=== PATIENT | male | born 1940 | race Caucasian/White ===

== ENCOUNTER 2024-08-02 16:05 | Inpatient (IN) | payer MEDICARE, SELFPAY ==
[2024-08-02] VITALS (24 sets, daily range): BP systolic 85–135; BP diastolic 45–79; BMI 19.7
--- NOTE | 2024-08-02 09:44 | ED.GENMED ---
History of Present Illness
General
Chief Complaint: Blood Pressure Problem
Source: patient, records, ambulance crew and long-term
Exam Limitations: dementia
Time Seen by Provider: 08/02/24 09:30
Nursing documentation reviewed up to this point in time: agreed with
History of Present Illness
History of Present Illness:
84-year-old male with a past medical history of hypertension, hyperlipidemia, CAD, CHF, AICD, CKD, atrial fibrillation, dementia who presents to the emergency room from long-term (the [facility] at [place]) via EMS for evaluation of low blood
pressure. Patient is a poor historian due to his dementia. While he is awake and alert and answers questions and tries to follow conversation he has very poor short-term recall on could not tell me much about why he is here. According to EMS they
received a call for hypotension; on their arrival he was mildly hypotensive with a blood pressure of 87/50 and he was transported to the ER. No other symptoms noted. He was given 500 cc of IV fluid on the way to the hospital. When I asked the
patient how he is feeling he says 'fine.' He says 'I told them I did not need to go to the hospital.' He denies any headache, neck pain, back pain, chest pain, abdominal pain. Denies any nausea. I spoke to the long-term staff directly for
collateral history: Apparently he just arrived at [facility] yesterday, had been at [facility] previously. snf staff reports that he was very weak and shaky today and they checked his blood pressure and it was low. They
also said his pulse ox was slightly low. He was referred to the ER to be evaluated. This is apparently all new since yesterday.
Review of Systems
Review of Systems
Unable to obtain full review of systems at this time due to: dementia
All Other Systems: Not applicable
Phy Exam
Physical Exam
Physical Exam:
General: Awake, alert, oriented x 2; no acute distress
Head: Normocephalic, atraumatic
Eyes: Conjunctiva normal, pupils equal round and reactive to light bilaterally
Throat: Airway intact, handling secretions
Neck: Trachea midline, supple without meningismus, no JVD
Lungs: Clear to auscultation bilaterally, no wheezing, rales, rhonchi
Heart: Regular rate and rhythm, no murmurs, gallops, or rubs; AICD in place left upper chest
Abd: Soft, non distended, nontender with no palpable masses
Neuro: No gross deficits
Skin: Warm and dry; patient has chronic wound on the right heel approximately 6 cm diameter with overlying black eschar; no surrounding erythema, warmth, drainage, tenderness, fluctuance
Extremities: No edema in extremities, distal extremities are warm and well-perfused
Scores
Heart Failure Risk
Heart Failure Risk Score: Not Applicable
Heart Score for Chest Pain Patients
STEMI patient?: Not applicable
Withdrawal Assessment of Alcohol
Withdrawal Assessment Completed?: Not applicable
Course
Orders/Labs/Results
Orders:
Orders
08/02/24 09:42
Electrocardiogram (*1) Urgent
Reason for Study: Other
Other Reason for Exam: hypotension
EKG- Treatment ONCE
Urinalysis Reflex To Culture Urgent
08/02/24 09:43
0.9% Sodium Chloride 250 ml [Nss] 250 ml IV BOLUS
CR Chest Portable - 1 View Urgent
Comment:
Reason For Exam: hypotension
Reason Study Needs to be Portable: Unable to Transport
08/02/24 09:44
Interrogate Pacemaker- Treatment ONCE
08/02/24 09:55
Basic Metabolic Panel Urgent
Complete Blood Count/With Diff Urgent
Lactate Level [Lactic Acid] Urgent
NT-proBNP Urgent
Troponin I Urgent
Abnormal Lab Results
08/02/24
09:55
WBC 11.0 H 10^3/uL
(4.8-10.8)
RBC 3.37 L 10^6/uL
(4.70-6.10)
Hgb 10.9 L g/dL
(13.0-18.0)
Hct 33.1 L %
(39.0-52.0)
MCV 98.2 H fL
(80.0-94.0)
MCH 32.3 H pg
(27.0-31.0)
MCHC 32.9 L g/dL
(33.0-37.0)
RDW 15.2 H %
(11.5-14.5)
MPV 11.1 H fL
(7.4-10.4)
Abs Immat Gran (auto) 0.1 H 10^3/uL
(0-0.05)
Absolute Neuts (auto) 8.5 H 10^3/uL
(1.4-6.5)
Neutrophils % 77.4 H %
(42.2-75.2)
Lymphocytes % 13.8 L %
(20.5-51.1)
Carbon Dioxide 19 L mmol/L
(22-30)
BUN 48 H mg/dl
(9-20)
Creatinine 2.8 H mg/dL
(0.7-1.3)
Glucose 108 H mg/dl
(70-99)
Lactic Acid 2.4 H mmol/L
(0.7-2.0)
08/02/24 09:55
08/02/24 09:55
Vital Signs
Initial and Last Documented VS:
Initial Vital Signs
Temp Pulse Resp BP Pulse Ox
36.5 C 77 16 95/47 98
08/02/24 09:23 08/02/24 09:23 08/02/24 09:23 08/02/24 09:23 08/02/24 09:23
Last Documented Vital Signs
Temp Pulse Resp BP Pulse Ox
36.5 C 77 16 95/47 98
08/02/24 09:23 08/02/24 09:23 08/02/24 09:23 08/02/24 09:23 08/02/24 09:23
MDM/Problems Addressed
Differential Diagnosis Includes:
Dehydration/hypovolemia; low suspicion that hypotension is cardiogenic with no signs of overt heart failure; he has no fever or tachycardia to suggest sepsis; no tachycardia, tachypnea, hypoxia to suggest pneumothorax or large PE, vital signs not
consistent with tamponade
MDM/Problems Addressed:
84-year-old male presents with mild hypotension from long-term. He says that he feels fine but is a limited historian due to his dementia. He was hypotensive to 87/50 for EMS; he received 500 cc of fluid and blood pressure improved slightly to
95/47. Physical exam as above�clinically he appears mildly hypovolemic on exam. Will check labs including a CBC and a CMP; obtain troponin/EKG, chest x-ray. Interrogate device. Check urinalysis. Provide additional fluids�given his cardiac
history will start with 250 cc and reassess vitals and volume status. Monitor closely reassess after the above.
Initial labs reviewed: CBC shows marginal leukocytosis to 11, CMP shows marginal anemia 10.9. CMP shows elevated creatinine 2.8 with BUN of 48 in the setting of known chronic kidney disease. Lactate was slightly elevated at 2.4. proBNP was
slightly elevated at 3000 troponin negative, chest x-ray no acute disease�he has no signs or symptoms of CHF and in fact appears mildly hypovolemic rather than volume overload. We are awaiting urinalysis and interrogation of his pacemaker/AICD.
His and daughter are now at the bedside�they report that he does have chronic and recurrent issues with dehydration.
Chronic conditions affecting care:
CHF
*Radiology
Radiology exam reviewed: preliminary read by ED provider and radiology read reviewed
*Pulse Oximetry
Patient hypoxic: no
*EKG
Interpreted by ED Provider?: Yes
Heart Rate: 60
Rate: normal
Rhythm: ventricular paced
*Critical Care Note
Total Time (30-74mins, 75-104mins- exclusive of procedures): Not Applicable
Data Reviewed
Source: patient, spouse, family, ambulance crew, long-term and long-term records
Patient Management
Discussion with other providers: snf staff (Discussed directly with long-term staff)
ED Attending Note
-
Portions of this chart may have been created with voice recognition software.� Occasional wrong word or��sound alike� substitutions may have occurred due to the inherent limitations of voice recognition software.
Discharge Plan
Departure
Prescriptions:
No Action
acetaminophen [Tylenol] 325 mg Tablet
650 mg PO Q4HPRN PRN (Reason: mild pain)
lidocaine 4 % Adhesive Patch,Medicated
1 patch TOPICAL DAILYPRN PRN (Reason: right knee)
valacyclovir 1 gram Tablet
1,000 mg PO DAILY
omeprazole 40 mg Capsule,Delayed Release(Dr/Ec)
40 mg PO DAILY
oxycodone-acetaminophen [Percocet] 5-325 mg Tablet
1 tab PO Q6HPRN PRN (Reason: severe pains)
sodium bicarbonate 650 mg Tablet
650 mg PO BID
brimonidine 0.2 % Drops
1 drp RIGHT EYE BID
docusate sodium [Colace] 100 mg Capsule
200 mg PO DAILY
allopurinol 300 mg Tablet
300 mg PO DAILY
mirtazapine 15 mg Tablet
15 mg PO HS
gabapentin 100 mg Capsule
100 mg PO BID
Eliquis 5 mg Tablet
5 mg PO BID
potassium chloride 20 mEq Tablet Extended Release
20 meq PO DAILY
magnesium oxide 400 mg magnesium Tablet
400 mg PO DAILY
Referrals:
Bryant Louis DO [Family Provider] -
Interventions
Interventions:
*Risk Screen - Suicide Last Done: 08/02/24 09:23
*General Assessment Last Done: 08/02/24 09:23
*Neglect/Abuse Screening Last Done: 08/02/24 09:23
Discharge Date and Time
Print Language: CROATIAN
[2024-08-02] MEDS: NSS 250 IV ×2 (09:53→12:45)
[2024-08-02 10:03] LABS: % Basophils 0.7 % (0-2); % Eosinophils 1.8 % (0-6); % Immature Granulocytes 0.5 % (0-0.5); % Lymphocytes 13.8 % (20.5-51.1); % Monocytes 5.8 % (1.7-9.3); % Neutrophils 77.4 % (42.2-75.2); Absolute Basophils 0.1 10^3/uL (0-0.2); Absolute Eosinophils 0.2 10^3/uL (0-0.7); Absolute Immature Granulocytes 0.1 10^3/uL (0-0.05); Absolute Lymphocytes 1.5 10^3/uL (1.2-3.4); Absolute Monocytes 0.6 10^3/uL (0.1-0.6); Absolute Neutrophils 8.5 10^3/uL (1.4-6.5); Hematocrit 33.1 % (39.0-52.0); Hemoglobin 10.9 g/dL (13.0-18.0); Mean Corp Hgb Conc. 32.9 g/dL (33.0-37.0); Mean Corpuscular Hgb 32.3 pg (27.0-31.0); Mean Corpuscular Volume 98.2 fL (80.0-94.0); Mean Platelet Volume 11.1 fL (7.4-10.4); Nucleated Red Blood Cells % 0 % (-); Platelet Count 212 10^3/uL (130-400); Red Blood Cell Count 3.37 10^6/uL (4.70-6.10); Red Cell Dist. Width 15.2 % (11.5-14.5)
[2024-08-02 10:14] LABS: Lactic Acid 2.4 mmol/L (0.7-2.0)
[2024-08-02 10:27] LABS: NT-proBNP 3140 pg/ml; Troponin I 0.021 ng/ml
[2024-08-02 10:37] LABS: Blood Urea Nitrogen 48 mg/dl (9-20); Calcium 9.5 mg/dl (8.4-10.2); Carbon Dioxide 19 mmol/L (22-30); Chloride 105 mmol/L (98-107); Estimated Creatinine Clearance 17 ml/min; Glucose 108 mg/dl (70-99); Sodium 138 mmol/L (135-145); eGFR 21.31
[2024-08-02 11:58] LABS: Urine Albumin 1+ (Neg - Trace); Urine Bilirubin Negative (Negative); Urine Character Slightly Cloudy (Clear); Urine Color Straw; Urine Glucose Negative (Negative); Urine Ketone Negative (Negative); Urine Leukocyte 2+ (Negative); Urine Nitrite Negative (Negative); Urine Occult Blood Trace (Negative); Urine Urobilinogen Negative (Neg - 1+)
[2024-08-02 12:12] LABS: Urine White Cell >100 /HPF (0-5)
[2024-08-02 12:13] LABS: Urine Bacteria Few (Negative); Urine Urothelial Cell 0-2 /LPF (FEW)
[2024-08-02] MEDS: ROCEPHIN 1000 MG IV (12:45)
--- NOTE | 2024-08-02 15:32 | CM ---
Patient seen at bedside with physician and resident. patient in ED. Patient daughter and no longer present in ED/hospital. Patient had been a patient at [facility] since 05/04-08/01 when he was transferred at [facility] request to [facility] 08/01. Patient brought to today. CM called and left for patient nurse at [facility] and requested call back. Per [facility] patient was to have been LTC at [facility] but after using all 100 days patient daughter did not want
to continue to pay privately and requested transfer to [facility]. Patient transferred to [facility] on 08/01/24. Per admissions/social work at [facility] Patient was being treated for wound care and patient was an extensive assist
of 1 transferring from bed to wheelchair and mod assist in all ADL's. Patient is able to feed self and likes coke a cola. CM was able to review POA documentation that indicated that the and daughter were identified as POA, documentation was
signed on 04/23/2024. Per [facility] admissions they would accept patient back if needing SNF but patient would be private pay due to using all medicare days. CM will call to patient daughter with resident and review discharge planning options. Per
[facility] and [facility] patient recently moved to [facility] from [place]. CM will continue to follow for discharge planning needs.
Plan; [facility] pending functional status and medical treatment plan.
--- NOTE | 2024-08-02 16:46 | HPS.HSE ---
Addendum entered and electronically signed by Sena Núñez MD 08/02/24 18:17:
I personally performed a history and physical exam of the patient and discussed management with the resident. I reviewed the resident's note and agree with the documented findings and plan of care HPI/CC.
GENERAL: well developed, well nourished, male in no apparent distress
HEENT: NC/AT
HEART: regular rate and rhythm, +S1, +S2--defibrillator left chest wall noted
LUNGS : clear to auscultation bilaterally
ABDOM: soft, nontender, nondistended, + bowel sounds
EXT: no cyanosis, clubbing, or edema
NEUROLOGIC: apparent dementia
: iniguez in place, herpetic/vesicular rash groin
SKIN: scaly patch appearing like psoriasis left abdominal fold
Hypotension with lactic acidosis--reason for ED evaluation--most likely secondary to hypovolemia as BP responds to IVF--other possible etiologies could be sepsis (infection of bilateral heel wound--POA or UTI but does not meet full criteria for
SIRS)--keep SBP ~ 100--hold on fluids--trend lactates
Acute UTI--Urinalysis positive--Urine culture pending--cont IV rocephin for now
WILL on CKDIII (baseline creat unknown)--Etiology likely prerenal due to hypovolemia with component of postrenal urinary retention (has BPH)--700 cc urine drained after iniguez placed for acute retention--follow creat with hydration
Pressure ulcers of bilateral Heels--present on admission--consult wound care--PT/OT
Genital Herpes--Continue Valacyclovir
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
Paroxysmal atrial fibrillation--rate controlled--Anticoagulation with Eliquis--cont meds as able
Generalized osteoarthritis--Continue to gabapentin, lidocaine patch, Percocet--Bowel regimen with MiraLAX, Colace, docusate as needed
Gout--Continue allopurinol at reduced dosage 200 mg for renal function
Depression/Dementia--Bedtime Mirtazapine
GERD without esophagitis--Continue omeprazole
HFpEF/ICD--Biventricular pacemaker--consideration for ECHO
DVT prophylaxis-Eliquis
CODE STATUS-DNR
PT/OT evals
Original Note:
Family Physician
-
Family Physician: Bryant Louis
Chief Complaint
-
Hypotension
History of Present Illness
This is an 84-year-old male with multiple past medical history as stated below, dementia who presents to ER from [facility]) due to low blood pressure and pulse ox. Limited information gotten from patient at bedside.
Additional information gotten from patient's daughter, ER notes and order summary report from [facility]. Patient was recently transferred from [facility] to [facility] in the past 24 hours. He was noted to be hypotensive, with
low pulse ox. EMS was called, and on arrival his blood pressure was 87/50 with no symptoms noted. He was given 500 cc of IV fluids en route to the hospital with slight improvement in his blood pressure. At bedside, patient denies any acute
complaints. He denies chest pain, denies shortness of breath, denies palpitations. On speaking to the daughter, daughter notes that patient has been very weak these past few days. On presentation to ED, his blood pressure was 95/47, afebrile,
with O2 sats 98% on room air. Evaluation with a chest x-ray showed no acute disease of chest. Urinalysis positive for UTI infection, with WBC 11.0 and lactic acid 2.4.
Medical History
Past Medical History
Past Medical History: Reports Other (Hemarthrosis right knee, atherosclerotic heart disease of [place] coronary artery without angina pectoris, presence of ICD, T2DM with diabetic CKD, essential hypertension, HFpEF, atrial fibrillation, CKD stage
III, hypercholesterolemia, gout, PVD, glaucoma, GERD without esophagitis, cognitive deficit)
Additional Past Medical History:
Generalized osteoarthritis, depression, Genital Herpes Viral infection, pressure ulcer of bilateral Heel
Past Surgical History: Reports Other (ICD implantation)
Social History
Unable to obtain full social history at this time due to: Dementia
Family History
Family History: Not pertinent
Allergies / Home Medications
Allergies reflects when Allergies were last updated in [facility].
Home Medications with original date entered in [facility]
Allergy/Medication List:
Allergies
Allergy/AdvReac Type Severity Reaction Status Date / Time
[id number] Reductase Allergy Unknown Verified 08/02/24 09:23
Inhibitor
Home Medications
acetaminophen 325 mg tablet (Tylenol) 650 mg PO Q4HPRN PRN mild pain 08/02/24
allopurinol 300 mg tablet 300 mg PO DAILY 08/02/24
apixaban 5 mg tablet (Eliquis) 5 mg PO BID 08/02/24
brimonidine 0.2 % eye drops 1 drp RIGHT EYE BID 08/02/24
docusate sodium 100 mg capsule (Colace) 200 mg PO DAILY 08/02/24
gabapentin 100 mg capsule 100 mg PO BID 08/02/24
lidocaine 4 % topical patch 1 patch topical DAILYPRN PRN right knee 08/02/24
magnesium oxide 400 mg PO DAILY 08/02/24
mirtazapine 15 mg tablet 15 mg PO HS 08/02/24
omeprazole 40 mg capsule,delayed release 40 mg PO DAILY 08/02/24
oxycodone-acetaminophen 5 mg-325 mg tablet (Percocet) 1 tab PO Q6HPRN PRN severe pains 08/02/24
potassium chloride 20 mEq tablet,extended release 20 meq PO DAILY 08/02/24
sodium bicarbonate 650 mg tablet 650 mg PO BID 08/02/24
valacyclovir 1 gram tablet 1,000 mg PO DAILY 08/02/24
Review of Systems
-
Unable to obtain full review of systems at this time due to: Dementia
Physical Exam
Vital Signs
Vital Signs
Temp Pulse Resp BP Pulse Ox
97.7 F 61 16 112/67 100
08/02/24 09:23 08/02/24 16:30 08/02/24 16:30 08/02/24 16:30 08/02/24 16:00
Physical Exam
General: No Apparent Distress and Comfortable
Respiratory: Clear; No Wheezes or Rales
Cardiac: S1/S2 and Regular Rhythm
GI: Soft, Non Tender, Non Distended and Normal Bowel Sounds
Genito-urinary: Iniguez
Musculoskeletal: Other (Pressure ulcers B/L HEEL, open wound on right knee.)
Skin: Other (Silvery-white scaly rash on left torso, Herpetic rash in groin, )
Neuro: Awake
Laboratory Results
-
08/02/24 09:55
08/02/24 09:55
Laboratory Results
Lactic Acid 2.4 mmol/L (0.7-2.0) H 08/02/24 09:55
Total Bilirubin Cancelled 08/02/24 09:55
AST Cancelled 08/02/24 09:55
ALT Cancelled 08/02/24 09:55
Alkaline Phosphatase Cancelled 08/02/24 09:55
Troponin I 0.021 ng/ml 08/02/24 09:55
Impression/Plan
-
IMPRESSION/PLAN:
#Acute UTI
-Urinalysis positive
-Urine cultures pending
-Initiated on IV Rocephin, will continue
-Elevated WBC on presentation, trend WBC
# Hypotension most likely secondary to hypovolemia
-Hypovolemic on physical examination
-BP improved with IV fluids
-Due to history of CHF, will hold off on more fluids at this time
-Monitor BP, off fluids
# WILL on CKDIII
-Etiology likely prerenal due to hypovolemia with component of postrenal, 700 cc urine after straight cath in ED.
-Iniguez inserted in ED due to acute retention. Will continue with Iniguez.
-Creatinine 2.8 on presentation, baseline unknown
-Although records with known history of WILL/CKD 3
-Monitor creatinine
# Pressure ulcer of bilateral Heel
-Wound consult
-B/L Heel with wrapped gauze
-PT/OT eval.
#Genital Herpes
-Continue Valacyclovir
#Psoriasis on Left Upper torso underneath Armpit
-Triamcinolone Ointment.
# Paroxysmal atrial fibrillation
-Anticoagulation with Eliquis
# Generalized osteoarthritis
-Continue to gabapentin, lidocaine patch, Percocet
-Bowel regimen with MiraLAX, Colace, docusate as needed
# Gout
-Continue allopurinol at reduced dosage 20 mg
# Depression
# Dementia
-Bedtime Mirtazapine
# GERD without esophagitis
-Continue omeprazole
HFpEF/ICD
Biventricular pacemaker
DVT prophylaxis-Eliquis
CODE STATUS-DNR
[2024-08-02] MEDS: NEURONTIN 100 MG PO (20:15)
[2024-08-02] MEDS: SODIUM BICARBONATE 650 MG PO (20:16)
[2024-08-02] MEDS: ELIQUIS 2.5 MG PO (20:16)
[2024-08-02] MEDS: PROTONIX 40 MG PO (20:17)
[2024-08-02] MEDS: REMERON 15 MG PO (21:49)
[2024-08-02] MEDS: TRIAMCINOLONE 0.1% OINTMENT 1 APPLIC TOPICAL (21:50)
[2024-08-02] MEDS: ALPHAGAN 0.2% EYE DROPS 1 DROP RIGHT EYE (22:23)
[2024-08-03] VITALS (9 sets, daily range): BP systolic 104–147; BP diastolic 50–68; PULSE 61; BMI 19.7
--- NOTE | 2024-08-03 07:33 | W.PN.HOSP.TC ---
Addendum entered and electronically signed by Sena Núñez MD 08/03/24 19:41:
I saw and evaluated the patient independently. I reviewed the resident�s note and agree with findings and plan as documented by Dr. Ybarra.
GENERAL: well developed, well nourished, male in no apparent distress
HEENT: NC/AT
HEART: regular rate and rhythm, +S1, +S2--defibrillator left chest wall noted
LUNGS : clear to auscultation bilaterally
ABDOM: soft, nontender, nondistended, + bowel sounds
EXT: no cyanosis, clubbing, or edema
NEUROLOGIC: apparent dementia
: iniguez in place, herpetic/vesicular rash groin
SKIN: scaly patch appearing like psoriasis left abdominal fold
Hypotension with lactic acidosis--resolved--reason for ED evaluation--most likely secondary to hypovolemia as BP responds to IVF--other possible etiologies could be sepsis (infection of bilateral heel wound--POA or UTI but does not meet full
criteria for SIRS) urine culture positive for enterococcus--cont rocephin for now--stop fluids--lactate now WNL
Acute Enterococcus UTI--Urinalysis positive--cont IV rocephin for now--pt was in SNF snf--await sensitivities and watch for VRE
WILL on CKDIII (baseline creat unknown)--Etiology likely prerenal due to hypovolemia with component of postrenal urinary retention (has BPH)--700 cc urine drained after iniguez placed for acute retention--no change in creat with hydration
Pressure ulcers of bilateral Heels/ scabbed abrasion left knee/nonblanchable red skin on buttocks--all present on admission--apprec wound care wound care--PT/OT
Genital Herpes--Continue Valacyclovir
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
Paroxysmal atrial fibrillation--rate controlled--Anticoagulation with Eliquis--cont meds as able
Generalized osteoarthritis--Continue to gabapentin, lidocaine patch, Percocet--Bowel regimen with MiraLAX, Colace, docusate as needed
Gout--Continue allopurinol at reduced dosage 200 mg for renal function
Depression/Dementia--Bedtime Mirtazapine
GERD without esophagitis--Continue omeprazole
HFpEF/ICD--Biventricular pacemaker--consideration for ECHO
DVT prophylaxis-Eliquis
CODE STATUS-DNR
Original Note:
Today's Communication/Plan
-
.
Assessment / Plan
Assessment / Plan
#Acute UTI
-Urinalysis positive
-Urine cultures pending, preliminary enterococcus
-Initiated on IV Rocephin, will continue
-Elevated WBC on presentation, trend WBC
# Hypotension most likely secondary to hypovolemia
#Lactic acidosis on presentation, Now resolved
-Hypovolemic on physical examination
-BP improved with IV fluids, NOW OFF FLUIDS
-Due to history of CHF, will hold off on more fluids at this time
-Monitor BP, off fluids
-Pending speech eval.
# WILL on CKDIII
-Etiology likely prerenal due to hypovolemia with component of postrenal, 700 cc urine after straight cath in ED.
-Iniguez inserted in ED due to acute retention. Will continue with Iniguez. Voiding trial tomorrow.
-Creatinine 2.8, similar on presentation, baseline unknown
-Although records with known history of WILL/CKD 3
-Monitor creatinine
# Pressure ulcer of bilateral Heel
-Wound consulted. Input B/l unstageable heel ulcers, dry stable down eschar. Pulses audible with doppler.
-B/L Heel with wrapped gauze
-PT/OT eval.
#Genital Herpes
-Continue Valacyclovir
#Psoriasis on Left Upper torso underneath Armpit
-Triamcinolone Ointment.
# Paroxysmal atrial fibrillation- rate controlled
-Anticoagulation with Eliquis. Eliquis dosage reduced to 2.5mg
# Generalized osteoarthritis
-Continue to gabapentin, lidocaine patch, Percocet
-Bowel regimen with MiraLAX, Colace, docusate as needed
# Gout
-Continue allopurinol at reduced dosage 20 mg
# Depression
# Dementia
-Bedtime Mirtazapine
# GERD without esophagitis
-Continue omeprazole
HFpEF/ICD
Biventricular pacemaker
DVT prophylaxis-Eliquis
CODE STATUS-DNR
Anticipated Discharge: > 48 hours
Subjective/Interval History
-
Patient seen and examined at bedside. Drowsy. Denies any acute complaint.
Objective Data
-
Labs:
Laboratory Results
08/03/24
06:00
WBC Pending
Hgb Pending
Hct Pending
Plt Count Pending
Sodium Pending
Potassium Pending
Chloride Pending
Carbon Dioxide Pending
BUN Pending
Creatinine Pending
Glucose Pending
Calcium Pending
Vital Signs:
Vital Signs
Temp Pulse Resp BP Pulse Ox
97.3 F 61 20 120/62 98
08/03/24 03:50 08/03/24 03:50 08/03/24 03:50 08/03/24 03:50 08/03/24 03:50
I&O
08/02/24 08/03/24 08/04/24
06:59 06:59 06:59
Intake Total 0 / 0
Output Total 500 / 500
Balance -500 / -500
Review of Systems
-
All other systems: Reviewed and negative (except as documented)
Physical Exam
-
General: No Apparent Distress
Respiratory: Clear to Auscultation
Cardiac: Regular Rhythm and S1/S2
GI: Soft, Nontender and Nondistended
Genito-urinary: Iniguez
Skin: Other (pressure ulcers bilateral heel. )
[2024-08-03 09:03] LABS: Hematocrit 32.1 % (39.0-52.0); Hemoglobin 10.8 g/dL (13.0-18.0); Mean Corp Hgb Conc. 33.6 g/dL (33.0-37.0); Mean Corpuscular Hgb 33.8 pg (27.0-31.0); Mean Corpuscular Volume 100.3 fL (80.0-94.0); Mean Platelet Volume 11.4 fL (7.4-10.4); Platelet Count 158 10^3/uL (130-400); Red Cell Dist. Width 14.9 % (11.5-14.5); White Blood Cell Count 7.9 10^3/uL (4.8-10.8)
[2024-08-03] MEDS: NEURONTIN 100 MG PO ×2 (09:55→21:30)
[2024-08-03] MEDS: PROTONIX 40 MG PO (09:55)
[2024-08-03] MEDS: SODIUM BICARBONATE 650 MG PO ×2 (09:55→21:30)
[2024-08-03] MEDS: ZYLOPRIM 200 MG PO (09:56)
[2024-08-03] MEDS: TRIAMCINOLONE 0.1% OINTMENT 1 APPLIC TOPICAL ×3 (09:57→22:16)
[2024-08-03] MEDS: ELIQUIS 2.5 MG PO ×2 (09:58→21:30)
[2024-08-03] MEDS: COLACE 200 MG PO (09:58)
[2024-08-03] MEDS: MAG-TAB SR 84 MG PO (09:58)
[2024-08-03] MEDS: VALTREX 1000 MG PO (09:59)
[2024-08-03] MEDS: ALPHAGAN 0.2% EYE DROPS 1 DROP RIGHT EYE ×2 (10:00→21:31)
[2024-08-03 10:07] LABS: Blood Urea Nitrogen 44 mg/dl (9-20); Calcium 9.5 mg/dl (8.4-10.2); Carbon Dioxide 21 mmol/L (22-30); Chloride 105 mmol/L (98-107); Estimated Creatinine Clearance 17 ml/min; Glucose 74 mg/dl (70-99); Potassium 5.4 mmol/L (3.5-5.1); Sodium 138 mmol/L (135-145); eGFR 21.31
--- NOTE | 2024-08-03 10:25 | WOUNDNOTE ---
L FLANK AND THIGH
--- NOTE | 2024-08-03 10:30 | WOUNDNOTE ---
WON RN note: Patient admitted with hypotension and acute UTI.
See H&P for complete history. From [facility] [place].
PMH: Dementia, A Fib, CHF,CAD,HTN, PVD, RF,gout DM, heel PI's and depression.
Wound Location and type/assessment: Patient admitted with: B/L unstageable heel ulcers, dry stable brown eschar. Slight separation from 12-3 O'clock outer edges but still dry, no drainage. L knee with scabbed abrasion. Very dry skin on legs and
feet, few dry scabs on toes. + pulses Audible with Doppler, non palpable. Buttocks with non blanchable red skin and what appears to be a fungal type rash. L flank and thighs with Tinea, steroid cream on order. Nurse Ondina assisted with assessment
and wound care, patient can assist with turning.
Appetite: Fair.
Pressure redistribution devices in place: Air overlay added to Accumax. Called [employer] for TruVue lite boots.
Plan: To heels applied Betadine swab to Eschar then adaptic, abd pad and pool. Offloading heel boots to be applied by nurse Nj. Will order Nizoral cream added to the Triamcinolone cream already on order, for buttocks, L flank and other yeasty
appearing pink skin. A&D ointment applied to legs and feet, will order mineral oil. residential door installer Amada Dukes made aware of the above and to consider vascular consult for heel wounds if deems appropriate. Local wound care approved and
resident will notify hospitalist of the above.
Updated care plan, nurse Nj and will follow as needed.
Note to case management of equipment requested for discharge: None.
Recommend follow up at wound care center upon discharge.
[2024-08-03] MEDS: STERILE WATER FOR INJECTION 10 ML IV (11:27)
[2024-08-03] MEDS: ROCEPHIN 1000 MG IV (11:27)
--- NOTE | 2024-08-03 13:29 | CM ---
CM spoke with [facility] nursing Jackie; [phone]. Per Jackie patient was borderline for acceptance when he arrived on 08/01 to their facility. Nursing to call patient daughter to review next steps. Therapy recommendation is to continue in LTC
however, patient is in personal care/memory care at this time. CM sent tt for clarification of recommendations from therapy. CM will continue to follow for discharge planning needs.
Plan; SNF vs personal care at [facility].
--- NOTE | 2024-08-03 14:49 | PTOTSP ---
Dysphagia Evaluation
Patient presents with signs concerning for pharyngeal dysphagia and aspiration as evidenced by consistent coughing with thin liquids. Patient with risk factors for dysphagia (cognitive impairment, GERD, heart failure; acute illness with UTI and
WILL). Evaluation of consistencies beyond thin/puree limited by patient refusal.
Patient's daughter/POA consented to video swallow study to further assess swallowing and elected to continue an oral diet until then understanding risks/complications of aspiration. Current CXR 08/02/2024 without signs of PNA.
Recommend:
1. Defer to MD for diet
2. Medications in puree
3. Strategies: upright to 90 degrees, small single sips/bites, slow rate, breaks if coughing, D/C oral diet if decline in respiratory status noted
4. Oral care 3x daily
5. Video swallow study
--- NOTE | 2024-08-03 14:54 | W.PN.UPDATE ---
Update Note
Progress Note Update
contacted Patient's daughter Varsha to update her on plan for the day and progress on her dad's health from yesterday. Daughter consented to a video swallow study. Answered all questions she had.
[2024-08-03] MEDS: FLOMAX 0.4 MG PO (16:50)
[2024-08-03] MEDS: NIZORAL 2% CREAM 1 APPLIC TOPICAL (21:29)
[2024-08-03] MEDS: REMERON 15 MG PO (21:30)
[2024-08-04 03:28] VITALS: BP 120/58
--- NOTE | 2024-08-04 03:51 | PTCARENOTE ---
iniguez removed at 00:15 per orders, pt due to void by 06:15. pt incontinent and saturated with urine at 03:30. Pt refusing to wear the fiber filled boots any longer, stating he 'doesn't have to do anything he doesn't want to do' despite education on
importance of boots. Feet propped up on pillow. plan of care ongoing
[2024-08-04 04:32] VITALS: BMI 20.2
--- NOTE | 2024-08-04 07:21 | W.PN.HOSP.TC ---
Addendum entered and electronically signed by Sena Núñez MD 08/04/24 19:12:
I saw and evaluated the patient independently. I reviewed the resident�s note and agree with findings and plan as documented by Dr. Ybarra.
GENERAL: well developed, well nourished, male in no apparent distress
HEENT: NC/AT
HEART: regular rate and rhythm, +S1, +S2--defibrillator left chest wall noted
LUNGS : clear to auscultation bilaterally
ABDOM: soft, nontender, nondistended, + bowel sounds
EXT: no cyanosis, clubbing, or edema
NEUROLOGIC: apparent dementia
: condom cath in place, herpetic/vesicular rash groin
SKIN: scaly patch appearing like psoriasis left abdominal fold
Patient failed video swallow and has aspiration of all consistencies of solids and liquids. Had long conversation (approximately 45 minutes to an hour) with patient's 2 daughters and along with case management and Dr. Ybarra. Family
clearly states that the patient likes to eat and does not care for the food at [facility] nor at critical access hospital. He would not want a feeding tube in that situation. They are in agreement with keeping him comfortable and discharging back to critical access hospital on
hospice tomorrow morning.
Hypotension with lactic acidosis--resolved--reason for ED evaluation--most likely secondary to hypovolemia as BP responded to IVF
Acute Enterococcus UTI--Urinalysis positive--change IV rocephin to doxycycline
WILL on CKDIII (baseline creat 1.2)--Etiology likely prerenal due to hypovolemia with component of postrenal urinary retention (has BPH)--700 cc urine drained after iniguez placed for acute retention
Pressure ulcers of bilateral Heels/ scabbed abrasion left knee/nonblanchable red skin on buttocks--all present on admission--apprec wound care wound care--PT/OT--apprec vascular input--no further workup desired
Genital Herpes--Continue Valacyclovir
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
Paroxysmal atrial fibrillation--rate controlled--Anticoagulation with Eliquis--cont meds as able
Generalized osteoarthritis--Continue to gabapentin, lidocaine patch, Percocet--Bowel regimen with MiraLAX, Colace, docusate as needed
Gout--Continue allopurinol at reduced dosage 200 mg for renal function
Depression/Dementia--Bedtime Mirtazapine
GERD without esophagitis--Continue omeprazole
HFpEF/ICD--Biventricular pacemaker--consideration for ECHO
DVT prophylaxis-Eliquis
CODE STATUS-DNR
Original Note:
Today's Communication/Plan
-
.
Assessment / Plan
Assessment / Plan
Assessment / Plan
#Acute UTI
-Urinalysis positive
-Urine cultures positive for enterococcus spp
-Initiated on IV Rocephin, will continue
# Hypotension most likely secondary to hypovolemia
#Lactic acidosis on presentation, Now resolved
-Hypovolemic on physical examination
-BP improved with IV fluids
-VIDEOFLUOROSCOPIC SWALLOWING EXAMINATION 08/04/2024.-Airway aspiration noted with all consistencies
# WILL on CKDIII
-Etiology likely prerenal due to hypovolemia with component of postrenal, 700 cc urine after straight cath in ED.
-s/p iniguez
-Creatinine 2.8>>2.4, per daughter, Cre level in April 25.2.
-Although records with known history of WILL/CKD 3
# Pressure ulcer of bilateral Heel
-Wound consulted. Input B/l unstageable heel ulcers, dry stable down eschar. Pulses audible with doppler.
-B/L Heel with wrapped gauze
-Vascular input appreciated
-Extremity arterial study 08/04/2024 Diffuse arterial calcification is identified throughout the bilateral lower extremities.
#Genital Herpes
-Continue Valacyclovir
#Psoriasis on Left Upper torso underneath Armpit
-Triamcinolone Ointment.
# Paroxysmal atrial fibrillation- rate controlled
-Anticoagulation with Eliquis. Eliquis dosage reduced to 2.5mg
# Generalized osteoarthritis
-Continue to gabapentin, lidocaine patch, Percocet
-Bowel regimen with MiraLAX, Colace, docusate as needed
# Gout
-Continue allopurinol at reduced dosage 20 mg
# Depression
# Dementia
-Bedtime Mirtazapine
# GERD without esophagitis
-Continue omeprazole
HFpEF/ICD
Biventricular pacemaker
DVT prophylaxis-Eliquis
CODE STATUS-DNR
After lengthy discussion with family regarding goals of care, family agreeable for comfort care. Plan [facility] return to [facility].
Anticipated Discharge: Within 24 hours
Objective Data
-
Labs:
Laboratory Results
08/04/24
07:01
WBC Pending
Hgb Pending
Hct Pending
Plt Count Pending
Sodium Pending
Potassium Pending
Chloride Pending
Carbon Dioxide Pending
BUN Pending
Creatinine Pending
Glucose Pending
Calcium Pending
Vital Signs:
Vital Signs
Temp Pulse Resp BP Pulse Ox
98.0 F 64 18 120/58 95
08/04/24 03:28 08/04/24 03:28 08/04/24 03:28 08/04/24 03:28 08/04/24 03:28
I&O
08/03/24 08/04/24 08/05/24
06:59 06:59 06:59
Intake Total 0 / 0
Output Total 500 / 500 800 / 800
Balance -500 / -500 -800 / -800
Physical Exam
-
General: No Apparent Distress
Respiratory: Clear to Auscultation
Cardiac: S1/S2 and Other (Defibrillator left chest wall noted)
GI: Soft, Nontender and Nondistended
Musculoskeletal: Other (pressure ulcers bilateral heel)
[2024-08-04 07:39] LABS: Hematocrit 32.5 % (39.0-52.0); Hemoglobin 11.2 g/dL (13.0-18.0); Mean Corp Hgb Conc. 34.5 g/dL (33.0-37.0); Mean Corpuscular Hgb 34.3 pg (27.0-31.0); Mean Corpuscular Volume 99.4 fL (80.0-94.0); Mean Platelet Volume 11.5 fL (7.4-10.4); Platelet Count 149 10^3/uL (130-400); Red Blood Cell Count 3.27 10^6/uL (4.70-6.10); Red Cell Dist. Width 14.8 % (11.5-14.5); White Blood Cell Count 9.5 10^3/uL (4.8-10.8)
[2024-08-04 07:40] VITALS: BP 135/65
[2024-08-04 07:49] VITALS: BP 112/56
[2024-08-04] MEDS: SODIUM BICARBONATE 650 MG PO ×2 (08:00→21:01)
[2024-08-04] MEDS: MAG-TAB SR 84 MG PO (08:00)
[2024-08-04] MEDS: COLACE 200 MG PO (08:00)
[2024-08-04] MEDS: ZYLOPRIM 200 MG PO (08:00)
[2024-08-04] MEDS: NEURONTIN 100 MG PO ×2 (08:00→21:01)
[2024-08-04] MEDS: NIZORAL 2% CREAM 1 APPLIC TOPICAL ×2 (08:00→21:02)
[2024-08-04] MEDS: FLOMAX 0.4 MG PO (08:00)
[2024-08-04] MEDS: ELIQUIS 2.5 MG PO ×2 (08:00→21:01)
[2024-08-04] MEDS: PROTONIX 40 MG PO (08:00)
[2024-08-04] MEDS: ALPHAGAN 0.2% EYE DROPS 1 DROP RIGHT EYE ×2 (08:00→21:02)
[2024-08-04] MEDS: TRIAMCINOLONE 0.1% OINTMENT 1 APPLIC TOPICAL ×3 (08:00→21:02)
[2024-08-04 08:06] LABS: Blood Urea Nitrogen 39 mg/dl (9-20); Calcium 9.7 mg/dl (8.4-10.2); Carbon Dioxide 22 mmol/L (22-30); Chloride 105 mmol/L (98-107); Estimated Creatinine Clearance 20 ml/min; Glucose 91 mg/dl (70-99); Potassium 5.1 mmol/L (3.5-5.1); Sodium 138 mmol/L (135-145); eGFR 25.63
--- NOTE | 2024-08-04 09:00 | PTOTSP ---
Speech Language Pathology
VIDEOFLUOROSCOPIC SWALLOWING EXAMINATION (VSE) completed. Overall, pt with mild oral and severe pharyngeal dysphagia. Significant pharyngeal residue noted with penetration or aspiration of all. Aspiration was silent in nature. Pt participated in
study, but was somewhat agitated. When results discussed, pt stated 'no.'
Recommend:
(1) NPO
(2) Goals of care discussion
(3) Non-oral meds
(4) Allow ice chips post oral care with supervision per Aspiration Risk Hydration Protocol (ARHP)
(5) SUPERVISOR W[employer] POUR to continue to follow
--- NOTE | 2024-08-04 11:04 | CON.VAS ---
Addendum entered and electronically signed by Jeffrey Koroma MD 08/04/24 12:22:
Seen and examined with GONZALES Juarez. Agree with findings as noted below. 84-year-old male with extensive medical history as noted below. He has some dementia as well. He is nonambulatory. Has developed bilateral likely pressure related lateral heel
ulcers/gangrene (dry gangrene or eschar). Asked to evaluate in terms of perfusion concerns. 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 He denies any history of lower extremity
interventions. He has had prior coronary stents but nothing in the lower extremities. He relates to me a significant smoking history but quit 40+ years ago. But he notes that he smoked up to 5 packs a day. On exam he is awake and alert. His
breathing is unlabored. Abdomen is soft, nondistended, nontender. Lower extremity on the right side with 2+ femoral and popliteal pulses, nonpalpable distally. On the left side I difficulty palpating a femoral (1+ at best), nonpalpable distally
as well.
Note when I examined him the way he is sitting appears to be the way he sits all the time with both feet externally rotated and therefore constant pressure on his lateral heels.
Noninvasive studies reviewed. Consistent with exam findings. No significant stenosis from femoral to popliteal arteries on the right side. Multiphasic waveforms. Monophasic distal waveforms suggestive of infrapopliteal disease. On the left side
monophasic waveforms throughout suggestive of inflow disease (also consistent with nonpalpable femoral pulse).
Plan/ Likely pressure related heel lateral gangrene/eschar. No signs of overt infections. While these are primarily pressure related, there may be a component of arterial insufficiency in terms of wound healing. Given nonpalpable left femoral
pulse and concern for inflow on that side, would favor CT angiogram imaging with runoff. Before any intervention is even discussed. However, he has renal insufficiency and therefore if this is considered, would recommend nephrology evaluation
first. In addition, the patient's positioning and lack of walking is going to lend itself to nonhealing even with ideal perfusion from an arterial perspective. In this setting, with heel ulcers as such, he actually may be best served with primary
lower extremity amputations as it would not change his quality of life, give him the best chance of wound healing and prevention of infection/sepsis. However this is a major undertaking especially in someone 84 years old. Consideration for goals
of care should be entertained. Per hospitalist, they are having discussion with the family. We will await further discussion and decision making.
Original Note:
Consultation
Consultation Request
Date/Time Consultation Performed: 08/04/24 1045
Requesting Provider: Hospitalist
Performing Provider: Ebony Juarez, GONZALES-C for Jeffrey Koroma MD
Reason for Consultation: Bilateral lower extremity heel wounds
Medical History
-
Chief Complaint: Hypotension
History of Present Illness:
This is a 84-year-old male significant past medical history for atrial fibrillation, CAD, heart failure, GERD, hypertension, hypercholesterolemia, diabetes, chronic kidney disease, gout, osteoarthritis, and cognitive deficits who reports to
[facility] from shelter on 05/2024 with reports of hypotension and low oxygenation reading. Patient is a poor historian and cannot contribute to HPI, he does note reports of pain in bilateral lower extremity heels but otherwise does not
wish to discuss any other concerns or symptoms. HPI is contributed by chart review. Vascular surgery has been consulted as he there is concerns for peripheral arterial disease with abnormal arterial ultrasound with CLARISSA/TBI, and patient has chronic
bilateral lower extremity heel wounds. Patient does state that he does not walk but cannot further delineate or describe ambulatory status. He denies seeing a vascular surgeon in the past or having vascular interventions done in the past.
Currently, offers no complaints other than pain at bilateral lower extremity heels with manipulation.
Past Medical History
Past Medical History: Arrhythmias (Atrial fibrillation), CAD, CHF (HFpEF), GERD, HTN, Hypercholesterolemia, NIDDM and Other (Hemarthrosis right knee, CKD stage III, gout, PVD, glaucoma, cognitive deficit, generalized osteoarthritis, depression,
Genital Herpes Viral infection, pressure ulcer of bilateral Heel)
Past Surgical History: Cardiac (ICD, cardiac catheterization with PCI)
Social History
Tobacco: Former Smoker (Quit 40 years ago but endorses heavy smoking history prior to this with roughly 5 packs/day. However, unclear if this is reliable information)
Living: Long Term
Allergies / Home Medications
Allergy/AdvReac Type Severity Reaction Status Date / Time
[id number]-[id number] Reductase Allergy Unknown Verified 08/02/24 09:23
Inhibitor
�Medication �Instructions �Recorded �Confirmed �Type
acetaminophen 325 mg tablet 650 mg PO Q4HPRN PRN mild pain 08/02/24 08/02/24 History
(Tylenol)
allopurinol 300 mg tablet 300 mg PO DAILY Gout 08/02/24 08/02/24 History
apixaban 5 mg tablet (Eliquis) 5 mg PO BID Blood Clot 08/02/24 08/02/24 History
Prevention/Tx
brimonidine 0.2 % eye drops 1 drp RIGHT EYE BID Eye Condition 08/02/24 08/02/24 History
docusate sodium 100 mg capsule 200 mg PO DAILY Constipation 08/02/24 08/02/24 History
(Colace)
gabapentin 100 mg capsule 100 mg PO BID Neurological 08/02/24 08/02/24 History
Condition
lidocaine 4 % topical patch 1 patch topical DAILYPRN PRN right 08/02/24 08/02/24 History
knee
magnesium oxide 400 mg PO DAILY Constipation 08/02/24 08/02/24 History
mirtazapine 15 mg tablet 15 mg PO HS Sleep 08/02/24 08/02/24 History
omeprazole 40 mg capsule,delayed 40 mg PO DAILY Gastrointestinal 08/02/24 08/02/24 History
release Issue
oxycodone-acetaminophen 5 mg-325 1 tab PO Q6HPRN PRN severe pains 08/02/24 08/02/24 History
mg tablet (Percocet)
potassium chloride 20 mEq 20 meq PO DAILY Supplement 08/02/24 08/02/24 History
tablet,extended release
sodium bicarbonate 650 mg tablet 650 mg PO BID Supplement 08/02/24 08/02/24 History
valacyclovir 1 gram tablet 1,000 mg PO DAILY Infection 08/02/24 08/02/24 History
Review of Systems
-
Unable to obtain full review of systems at this time due to: Dementia
Physical Exam
Vital Signs
Temp Pulse Resp BP Pulse Ox
97.8 F 60 18 112/56 100
08/04/24 07:49 08/04/24 07:49 08/04/24 07:49 08/04/24 07:49 08/04/24 07:49
Lab Results
08/04/24 07:01
08/04/24 07:01
Troponin I 0.021 ng/ml 08/02/24 09:55
Mdc-T-Pqavtiaqeug Pept 3140 pg/ml 08/02/24 09:55
Physical Exam
General: No Apparent Distress
HEENT: Normocephalic, Anicteric and Atraumatic
Respiratory: Non Labored Respirations
Cardiac: Negative JVD
GI: Soft, Non Tender and Non Distended
Musculoskeletal: No Edema
Skin: Other (Bilateral heel with eschar, please refer to wound care notes for pictures and descriptions of wounds as patient was unwilling to have us change dressings)
Neuro: Awake and Oriented (to self)
Pulses: Left Femoral: +1 and Right Femoral: +2 (Bilateral DP/PT pulses nonpalpable)
Assessment / Plan
-
Assessment: 84-year-old male with peripheral arterial disease and chronic bilateral lower extremity heel wounds/pressure ulcers
Plan:
Reviewed noninvasive arterial ultrasound with CLARISSA/TBI suspect inflow disease at left lower extremity given monophasic waveforms, would recommend CTA aorta with bilateral lower extremity runoff to fully assess extent of inflow disease and PAD prior
to providing vascular surgical recommendations. However, he has chronic kidney disease so would recommend nephrology consultation prior to administering IV contrast dye. I personally reviewed this plan with attending Dr. Núñez who informed our
team that there will be a goal of care discussion with patient's family happening today. Thus, we will wait until after this discussion to enact recommendations if that is the family's wishes. Of note, patient is refusing offloading boots and is
wheelchair/bed-bound; thus healing these wounds will be extremely challenging if he continues to place constant pressure on his heels even with revascularization options.
HPI, physical exam, and plan reviewed with attending Dr. Jeffrey Koroma who agrees with plan. I performed this shared service with the attending. I evaluated the patient [id number] and have entered clinical documentation as shown in the encounter note.
I performed the following component(s):�history and physical exam. Note that medical decision making is not final until attested by vascular attending.
[2024-08-04] MEDS: NSS 1000 IV ×2 (11:10→22:54)
[2024-08-04 11:12] VITALS: BP 124/65
[2024-08-04] MEDS: VALTREX 1000 MG PO (11:58)
[2024-08-04] MEDS: HYDROPHOR 1 APPLIC TOPICAL (12:03)
[2024-08-04] MEDS: STERILE WATER FOR INJECTION 10 ML IV (12:35)
[2024-08-04] MEDS: ROCEPHIN 1000 MG IV (12:35)
--- NOTE | 2024-08-04 13:37 | CM ---
Addendum entered by Yolis Leong 08/04/24 16:25:
please fax to [facility] clinical documentation; [phone]. CM e-mailed to patient daughter [email or web address].
Addendum entered by Yolis Leong 08/04/24 16:21:
[facility] fax # [phone]
Addendum entered by Yolis Leong 08/04/24 16:15:
CM spoke with patient daughter, all hospice paperwork is signed and DME for delivery to [facility]. Plan is for discharge tomorrow, asking for transportation at [facility] tomorrow. Transportation paperwork completed and liaison aware. Out of
hospital DNR completed and on chart. Patient will start with [facility] tomorrow when he arrives at [facility]. Please call report to [phone]. CM will continue to follow for discharge planning needs.
Plan; return to [facility] with [facility].
Addendum entered by Yolis Leong 08/04/24 13:56:
referrals sent to admissions at [facility] in [place] and [facility] via all scripts.
Original Note:
Family meeting held with and 2 daughters. Physician and resident present as well as CM. Plan for return to [facility]. CM will make referrals and set up return pending physician assessment. CM will continue to follow for
discharge planning needs.
Plan; [facility]
--- NOTE | 2024-08-04 13:48 | W.CAR.ICD ---
ICD Inactivation Request
-
Cartography Teacher Notified: [employer]
The above vendor has been contacted to inactivate the patient's Implantable Cardioverter Defibrillator.
[2024-08-04 14:34] VITALS: BP 109/61
--- NOTE | 2024-08-04 14:45 | PTCARENOTE ---
Patient's family had meeting today with medical team. Plan is to discharge tomorrow to hospice care. Patient aspirating on all consistencies but diet order to feed for comfort. Patient's temperature is currently 94.4. MD notified. States no
interventions besides use of blankets.
--- NOTE | 2024-08-04 15:05 | W.ICD.INACTI ---
ICD Device Inactivated
-
The patient's ICD device has been inactivated by the vendor.
--- NOTE | 2024-08-04 19:32 | PTCARENOTE ---
Patient states that his Rolex watch is missing. Confirmed that daughter has his watch at home. Patient aware that daughter has watch.
--- NOTE | 2024-08-04 19:33 | PTCARENOTE ---
Pacer/ICD turned off by cardiology team as per family's wishes. Tele removed.
[2024-08-04] MEDS: REMERON 15 MG PO (21:01)
[2024-08-04 23:40] VITALS: BP 145/69
[2024-08-05 06:00] VITALS: BMI 20.7
[2024-08-05 07:00] VITALS: BP 135/62
--- NOTE | 2024-08-05 07:18 | W.PN.HOSP.TC ---
Addendum entered and electronically signed by Sena Núñez MD 08/05/24 19:04:
I saw and evaluated the patient independently. I reviewed the resident�s note and agree with findings and plan as documented by Dr. Ybarra.
GENERAL: well developed, well nourished, male in no apparent distress
HEENT: NC/AT
HEART: regular rate and rhythm, +S1, +S2--defibrillator left chest wall noted
LUNGS : clear to auscultation bilaterally
ABDOM: soft, nontender, nondistended, + bowel sounds
EXT: no cyanosis, clubbing, or edema
NEUROLOGIC: apparent dementia
[facility]
Hypotension with lactic acidosis--resolved--reason for ED evaluation--most likely secondary to hypovolemia as BP responded to IVF
Acute Enterococcus UTI--Urinalysis positive--change IV rocephin to doxycycline to finish course
WILL on CKDIII (baseline creat 1.2)--Etiology likely prerenal due to hypovolemia with component of postrenal urinary retention (has BPH)--700 cc urine drained after iniguez placed for acute retention
Pressure ulcers of bilateral Heels/ scabbed abrasion left knee/nonblanchable red skin on buttocks--all present on admission--apprec wound care wound care--PT/OT--apprec vascular input--no further workup desired
Genital Herpes--Continue Valacyclovir
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
Paroxysmal atrial fibrillation--rate controlled--Anticoagulation with Eliquis--cont meds as able
Generalized osteoarthritis--Continue to gabapentin, lidocaine patch, Percocet--Bowel regimen with MiraLAX, Colace, docusate as needed
Gout--Continue allopurinol at reduced dosage 200 mg for renal function
Depression/Dementia--Bedtime Mirtazapine
GERD without esophagitis--Continue omeprazole
HFpEF/ICD--Biventricular pacemaker--consideration for ECHO
DVT prophylaxis-Eliquis
CODE STATUS-DNR
Original Note:
Today's Communication/Plan
-
Discharge today.
Assessment / Plan
Assessment / Plan
Assessment / Plan
#Acute UTI
-Urinalysis positive
-Urine cultures positive for enterococcus spp
-Initiated on IV Rocephin, will transition to amoxicillin 500mg BID x4days to complete 7 day course.
# Hypotension most likely secondary to hypovolemia
#Lactic acidosis on presentation, Now resolved
-Hypovolemic on physical examination
-BP improved with IV fluids
-VIDEOFLUOROSCOPIC SWALLOWING EXAMINATION 08/04/2024.-Airway aspiration noted with all consistencies
# WILL on CKDIII
-Etiology likely prerenal due to hypovolemia with component of postrenal, 700 cc urine after straight cath in ED.
-s/p iniguez
-Creatinine 2.8>>2.4, per daughter, Cre level in April 25.2.
-Although records with known history of WILL/CKD 3
# Pressure ulcer of bilateral Heel
-Wound consulted. Input B/l unstageable heel ulcers, dry stable down eschar. Pulses audible with doppler.
-B/L Heel with wrapped gauze
-Vascular input appreciated
-Extremity arterial study 08/04/2024 Diffuse arterial calcification is identified throughout the bilateral lower extremities.
#Genital Herpes
-Continue Valacyclovir
#Psoriasis on Left Upper torso underneath Armpit
-Triamcinolone Ointment.
# Paroxysmal atrial fibrillation- rate controlled
-Anticoagulation with Eliquis. Eliquis dosage reduced to 2.5mg
# Generalized osteoarthritis
-Continue to gabapentin, lidocaine patch, Percocet
-Bowel regimen with MiraLAX, Colace, docusate as needed
# Gout
-Continue allopurinol at reduced dosage 20 mg
# Depression
# Dementia
-Bedtime Mirtazapine
# GERD without esophagitis
-Continue omeprazole
HFpEF/ICD
Biventricular pacemaker
Defibrillator turned off by cardiology.
DVT prophylaxis-Eliquis
CODE STATUS-DNR
After lengthy discussion with family regarding goals of care, family agreeable for comfort care. Plan for return to [facility].
Anticipated Discharge: Today
Subjective/Interval History
-
Patient seen at bedside. No overnight events. ICD turned off.
Objective Data
-
Vital Signs:
Vital Signs
Temp Pulse Resp BP Pulse Ox
97.9 F 70 18 145/69 96
08/04/24 23:40 08/04/24 23:40 08/04/24 23:40 08/04/24 23:40 08/04/24 23:40
I&O
08/04/24 08/05/24 08/06/24
06:59 06:59 06:59
Intake Total 480 / 480
Output Total 800 / 800 600 / 600
Balance -800 / -800 -120 / -120
Review of Systems
-
All other systems: Reviewed and negative (except as documented. )
Physical Exam
-
Cardiac: Regular Rhythm and S1/S2
GI: Soft and Nondistended
Musculoskeletal: No Edema
Psych: Apparent Dementia
[2024-08-05] MEDS: PROTONIX 40 MG PO (09:02)
[2024-08-05] MEDS: FLOMAX 0.4 MG PO (09:03)
[2024-08-05] MEDS: ELIQUIS 2.5 MG PO (09:03)
[2024-08-05] MEDS: NEURONTIN 100 MG PO (09:03)
[2024-08-05] MEDS: ZYLOPRIM 200 MG PO (09:03)
[2024-08-05] MEDS: MAG-TAB SR 84 MG PO (09:03)
[2024-08-05] MEDS: SODIUM BICARBONATE 650 MG PO (09:03)
[2024-08-05] MEDS: COLACE PO ×2 (09:03→09:14)
[2024-08-05] MEDS: VALTREX 1000 MG PO (09:03)
[2024-08-05] MEDS: ALPHAGAN 0.2% EYE DROPS 1 DROP RIGHT EYE (09:04)
[2024-08-05] MEDS: TRIAMCINOLONE 0.1% OINTMENT 1 APPLIC TOPICAL (09:04)
[2024-08-05] MEDS: NIZORAL 2% CREAM 1 APPLIC TOPICAL (09:04)
[2024-08-05] MEDS: NSS 1000 IV (09:06)
[2024-08-05] MEDS: HYDROPHOR 1 APPLIC TOPICAL (09:08)
--- NOTE | 2024-08-05 09:46 | CM ---
Pt for dc to [facility] with [facility].
Spoke with [facility] DME to be delivered today to [facility] by 12pm.
Ambulance set up .
DNROOH form signed by .
Spoke with Natasha at [facility] they are aware with dc plan above.
Spoke with Varsha segal she agree with dc plan.
[facility] fax [phone].
[facility] fax # [phone]
PLAN Return to [facility]
--- NOTE | 2024-08-05 17:07 | W.DCSUMMARY ---
Addendum entered and electronically signed by Sena Núñez MD 08/05/24 19:06:
Read, reviewed, and agree. See same day progress note for additional details. Time spent coordinating care, DC planning, review of DC plan of care with resident, transition of care, review of records in EMR, med rec, consults, notes, d/w
consultants, nursing, family, and CM less than 30 minutes
Original Note:
Discharge Summary
Discharge Data
Date of Admission: 08/02/24
Date of Discharge: 08/05/24
-
Pending Results: No
Hospital Course
BRIEF HOSPITAL COURSE: This is an 84-year-old male with past medical history of atherosclerotic heart disease of lumbee coronary artery without angina pectoris, presence of ICD, T2DM with diabetic CKD, essential hypertension, HFpEF, atrial
fibrillation, CKD stage III, hypercholesterolemia, gout, PVD, glaucoma, GERD without esophagitis, dementia who presented to ER from [facility] due to low blood pressure and pulse ox. EMS was called, and on arrival his
blood pressure was 87/50 with no symptoms noted. He was given 500 cc of IV fluids en route to the hospital with slight improvement in his blood pressure. On presentation to ED, his blood pressure was 95/47, afebrile, with O2 sats 98% on room
air. Evaluation with a chest x-ray showed no acute disease of chest. Urinalysis positive for UTI infection, with WBC 11.0 and lactic acid 2.4. He was initially initiated on IV Rocephin, then changed to amoxicillin after urine cultures eventually
positive for Enterococcus spp. His blood pressure improved with IV fluids.
On presentation to the ED, his creatinine was 2.8 with baseline unknown. Straight cath was done in the ED due to acute retention with 700 cc urine. Agrawal was then inserted. Although his records did show history of WILL/CKD 3. Etiology was likely
prerenal due to hypovolemia with component of postrenal. Additionally, physical examination showed pressure ulcer of bilateral heel. Wound team was consulted and was determined that the vascular surgeon further evaluate. After evaluation it was
noted nonpalpable left femoral pulse and concern for inflow, and favor CT angiogram imaging with runoff was ordered. Arterial duplex examination revealed multiphasic waveforms from the common femoral artery through the popliteal artery with no focal
velocity elevations to suggest significant stenosis on the right lower extremity. Arterial duplex examination reveals monophasic waveforms throughout the left lower extremity consistent with iliac inflow disease. Low amplitude waveforms were seen
throughout.
Speech therapist was consulted to evaluate patient due to concerns of aspiration. They recommended evaluation with a videofluoroscopic swallowing study. Patient failed video swallow and had aspiration of all consistencies of solids and liquids.
Patient's family was called in for goals of care discussion. A long conversation (approximately 45 minutes to an hour) with patient's 2 daughters and along with case management. Family clearly stated that the patient likes to eat and did not
care for the food at [facility] nor at [facility] the past few weeks. He would not want a feeding tube in that situation. They were in agreement with keeping him comfortable and discharging on hospice at the living facility.
Cardiology was then consulted to turn off his defibrillator. Patient was discharged to the assisted living facility on hospice today.
Discharge Plan
-
Patient Disposition: Home with Home Care
Discharge Diagnosis/Procedures: Acute UTI
Hypotension secondary to hypovolemia
WILL on CKD 3
Pressure ulcer bilateral heel
Genital herpes
Psoriasis
Paroxysmal atrial fibrillation
Dementia
Airway aspirations
Condition: Fair
Diet: No restrictions
Activity: With assistance
Driving Restrictions: No driving
Other Services: Hospice
Activity Restrictions/Additional Instructions:
Wound Care Instructions
Heels: Betadine swab to Eschar then adaptic, abd pad and pool.
Change q other day and prn soilage.
Nizoral cream and Triamcinolone cream for buttocks, L flank and other yeasty appearing pink skin apply bid
legs and feet: mineral oil daily
L knee: clean with saline, silicone foam change q 3 days and prn soilage.
air overlay or air mattress with turning schedule
offloading heel boots when in bed
Follow up at wound care center call for an appointment.
Referrals:
Bryant Louis, [Family Provider] -
Prescriptions:
New
amoxicillin 500 mg capsule
500 mg PO BID Qty: 10 0RF
Continued
acetaminophen [Tylenol] 325 mg Tablet
650 mg PO Q4HPRN PRN (Reason: mild pain)
lidocaine 4 % Adhesive Patch,Medicated
1 patch TOPICAL DAILYPRN PRN (Reason: right knee)
valacyclovir 1 gram Tablet
1,000 mg PO DAILY
omeprazole 40 mg Capsule,Delayed Release(Dr/Ec)
40 mg PO DAILY
oxycodone-acetaminophen [Percocet] 5-325 mg Tablet
1 tab PO Q6HPRN PRN (Reason: severe pains)
sodium bicarbonate 650 mg Tablet
650 mg PO BID
brimonidine 0.2 % Drops
1 drp RIGHT EYE BID
docusate sodium [Colace] 100 mg Capsule
200 mg PO DAILY
allopurinol 300 mg Tablet
300 mg PO DAILY
mirtazapine 15 mg Tablet
15 mg PO HS
gabapentin 100 mg Capsule
100 mg PO BID
Eliquis 5 mg Tablet
5 mg PO BID
potassium chloride 20 mEq Tablet Extended Release
20 meq PO DAILY
magnesium oxide 400 mg magnesium Tablet
400 mg PO DAILY
Discharge Orders:
Discharge Patient (As Directed); Ordered 08/05/24
Ordered By: Ernst Ybarra
Discharge Date and Time
Discharge Date/Time: 08/05/24 11:31
Print Language: [place]
== END 2024-08-05 11:31 | disposition home health service (06) | DRG 690 ==
LOC: 4 EAST ACU 16:05
PROVIDERS: Student in an Organized Health Care Education/Training Program; ADMITTING PHYSICIAN Internal Medicine; EMERGENCY PHYSICIAN Emergency Medicine; FAMILY PHYSICIAN Internal Medicine; OTHER PHYSICIAN Surgery Vascular Surgery
DX: N39.0 Urinary tract infection, site not specified (principal); E87.20 Acidosis, unspecified; N17.9 Acute kidney failure, unspecified; F03.93 Unspecified dementia, unspecified severity, with mood disturbance; I50.30 Unspecified diastolic (congestive) heart failure; I95.9 Hypotension, unspecified; E86.1 Hypovolemia; N18.30 Chronic kidney disease, stage 3 unspecified; L89.629 Pressure ulcer of left heel, unspecified stage; L89.619 Pressure ulcer of right heel, unspecified stage; A60.02 Herpesviral infection of other male genital organs; L40.9 Psoriasis, unspecified; I48.0 Paroxysmal atrial fibrillation; M15.9 Polyosteoarthritis, unspecified; F32.A Depression, unspecified; K21.9 Gastro-esophageal reflux disease without esophagitis; Z66 Do not resuscitate
CPT/HCPCS: 71045; 74230; 80048; 81003; 81015; 83605; 83735; 83880; 84484; 85025; 85027; 87040; 87077; 87086; 87186; 92610; 92611; 93005; 93922; 93925; 96361; 96374; 97162; 97166; 99285